=== PATIENT | female | born 1985 | race Caucasian/White ===

== ENCOUNTER 2024-08-02 18:07 | Emergency (ER) | payer BC ==
[2024-08-02 18:35] VITALS: BP 135/93; PULSE 85; RESP 20; TEMP 97.9; BMI 28.3
== END 2024-08-02 19:11 | disposition home or self-care (01) ==
LOC: FER 18:07
PROC: 0XQNXZZ Repair Right Index Finger, External Approach (ICD-10-PCS; principal; 2024-08-02)
DX: S61.210A Laceration without foreign body of right index finger without damage to nail, initial encounter (principal); W26.0XXA Contact with knife, initial encounter
CPT/HCPCS: 99282-25